=== PATIENT | male | born 1945 | race Caucasian/White ===

== ENCOUNTER 2017-04-13 07:07 | Day surgery (SDC) | payer OTHER, BC ==
[2017-04-13] MEDS ORDERED: NS 500 ML IV 500 ML IV ONE (07:14)
[2017-04-13] MEDS ORDERED: TETRACAINE 0.5% OPHTH 1 DOSE AFFEYE ONE ×3 (07:30→09:38)
[2017-04-13] MEDS ORDERED: VIGAMOX 0.5% OPHTH 1 DOSE AFFEYE ONE ×6 (07:35→10:12)
[2017-04-13] MEDS ORDERED: PROLENSA OPHTH 1 DOSE AFFEYE ONE (07:46)
[2017-04-13] MEDS ORDERED: ALPHAGAN-P OPHTH 1 DOSE AFFEYE ONE (07:47)
[2017-04-13] MEDS ORDERED: CYCLOGYL 1% OPHTH 1 DOSE OP ONE ×4 (07:48→09:28)
[2017-04-13] MEDS ORDERED: MYDRIACIL OPHTH 1 DOSE AFFEYE ONE ×4 (07:48→09:28)
[2017-04-13] MEDS ORDERED: AK-DILATE 2.5% OPHTH 1 DOSE OP ONE ×4 (07:48→09:28)
[2017-04-13] MEDS ORDERED: VERSED ONE (08:09)
[2017-04-13] MEDS ORDERED: VERSED IVP ONE (09:22)
[2017-04-13] MEDS ORDERED: ALCAINE or OPHTHETIC 1 DOSE AFFEYE ONE (09:24)
[2017-04-13] MEDS ORDERED: AK-DILATE 10% OPHTH 1 DOSE AFFEYE ONE (09:28)
[2017-04-13] MEDS ORDERED: BETADINE OPHTH SOLN 5% EACHEYE ONE (09:38)
[2017-04-13] MEDS ORDERED: ADRENALINE CHL INJ IJ ONE ×2 (09:42→09:54)
[2017-04-13] MEDS ORDERED: DUOVISC IO ONE ×2 (09:42→09:54)
[2017-04-13] MEDS ORDERED: XYLOCAINE-MPF 1% IJ ONE ×2 (09:42→09:54)
[2017-04-13] MEDS ORDERED: BSS OPHTH (PLAIN) 500 ML with VANCOMYCIN HCL 500 MG VIAL 25 MG, ADRENALINE CHL INJ 1 MG IR ONE ×3 (09:54)
[2017-04-13] MEDS ORDERED: VISCOAT 0.5 ML IO ONE (10:02)
[2017-04-13 10:36] VITALS: BP 141/79
== END 2017-04-13 10:41 | disposition home or self-care (01) ==
LOC: SURG1 07:07
PROVIDERS: ATTEND Ophthalmology
PROC: 08RJ3JZ Replacement of Right Lens with Synthetic Substitute, Percutaneous Approach (ICD-10-PCS; principal; 2017-04-13 08:15)
PROC: 08DJ3ZZ Extraction of Right Lens, Percutaneous Approach (ICD-10-PCS; principal; 2017-04-13 08:15)
DX: H25.11 Age-related nuclear cataract, right eye (principal); H52.221 Regular astigmatism, right eye; H25.011 Cortical age-related cataract, right eye
CPT/HCPCS: 99100; A4217; J0170; J2250; J3370

== ENCOUNTER 2017-06-22 11:46 | Day surgery (SDC) | payer OTHER, BC ==
[2017-06-22] MEDS ORDERED: NS 500 ML IV 500 ML IV ONE (12:12)
[2017-06-22] MEDS ORDERED: TETRACAINE 0.5% OPHTH 1 DOSE AFFEYE ONE ×6 (12:15→15:39)
[2017-06-22] MEDS ORDERED: VIGAMOX 0.5% OPHTH 1 DOSE AFFEYE ONE ×5 (12:20→15:52)
[2017-06-22] MEDS ORDERED: PROLENSA OPHTH 1 DOSE AFFEYE ONE (12:31)
[2017-06-22] MEDS ORDERED: ALPHAGAN-P OPHTH 1 DOSE AFFEYE ONE (12:32)
[2017-06-22] MEDS ORDERED: AK-DILATE 2.5% OPHTH 1 DOSE OP ONE ×3 (12:33→12:35)
[2017-06-22] MEDS ORDERED: MYDRIACIL OPHTH 1 DOSE AFFEYE ONE ×3 (12:33→12:35)
[2017-06-22] MEDS ORDERED: CYCLOGYL 1% OPHTH 1 DOSE OP ONE ×3 (12:33→12:35)
[2017-06-22] MEDS: VERSED ONE ×2 (14:50→15:05)
[2017-06-22] MEDS ORDERED: AK-DILATE 10% OPHTH 1 DOSE AFFEYE ONE (15:11)
[2017-06-22] MEDS ORDERED: BETADINE OPHTH SOLN 5% EACHEYE ONE (15:20)
[2017-06-22] MEDS ORDERED: XYLOCAINE-MPF 1% IJ ONE ×2 (15:27→15:39)
[2017-06-22] MEDS ORDERED: ADRENALINE CHL INJ IJ ONE ×2 (15:28→15:39)
[2017-06-22] MEDS ORDERED: BSS OPHTH (PLAIN) 500 ML with VANCOMYCIN HCL 500 MG VIAL 25 MG, ADRENALINE CHL INJ 1 MG IR ONE ×6 (15:28)
[2017-06-22] MEDS ORDERED: DUOVISC IO ONE ×2 (15:28→15:39)
[2017-06-22 16:09] VITALS: BP 165/85
== END 2017-06-22 16:16 | disposition home or self-care (01) ==
LOC: SURG1 11:46
PROVIDERS: ATTEND Ophthalmology
PROC: 08DK3ZZ Extraction of Left Lens, Percutaneous Approach (ICD-10-PCS; principal; 2017-06-22 19:45)
PROC: 08RK3JZ Replacement of Left Lens with Synthetic Substitute, Percutaneous Approach (ICD-10-PCS; principal; 2017-06-22 19:45)
DX: H25.12 Age-related nuclear cataract, left eye (principal); H25.012 Cortical age-related cataract, left eye; H52.222 Regular astigmatism, left eye
CPT/HCPCS: 99100; J0170; J2250; J3370